=== PATIENT | female | born 2000 | race Caucasian/White ===

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

== ENCOUNTER 2019-05-24 13:41 | Emergency (ER) | payer BC, SELFPAY ==
[2019-05-24 13:42] VITALS: BP 162/92; PULSE 80; RESP 16; TEMP 36.6; O2SAT 100; BMI 26.1
--- NOTE | 2019-05-24 14:09 | CT_ITS ---
STUDY: CT ABDOMEN AND PELVIS WITH CONTRAST REASON FOR EXAM: Female, 19 years old. Right lower quadrant pain. RADIATION DOSAGE (If Supplied By Facility): CTDIvol = ( 10.65 ) mGy, DLP = ( 742.45 ) mGycm TECHNIQUE: Transaxial images were obtained from the dome of the diaphragm to the symphysis pubis with oral contrast. 100 ml of Isovue 370 contrast was administered. Sagittal and coronal images were reconstructed. Individualized dose optimization techniques were used for this CT. COMPARISON: None. FINDINGS: The visualized lung bases are clear. The visualized portions of the heart and pericardium are within normal limits. There are no calcified gallstones present. The liver is within normal limits. There are no suspicious hepatic lesions. The spleen is normal in size. The pancreas is within normal limits. The adrenal glands are within normal limits. There are no renal or ureteral stones. There is no hydronephrosis. There are no focal renal lesions. Normal visualized stomach. There is no bowel obstruction or inflammation. The appendix is visualized and appears normal. The aorta is normal in caliber. There is a right adnexal cyst. There is a small amount of pelvic free fluid. There is no free air, fluid collection or lymphadenopathy. There are no destructive osseous lesions. CT/Abdomen/Pelvis WITH Contrast IMPRESSION: Right adnexal cyst with a small amount of pelvic free fluid. This is likely physiologic. No bowel obstruction or inflammation. Normal appendix. Normal kidneys. No hydronephrosis. Electronically Signed: Mason Arnav, at 16:30 EDT Tel , Service support ,
[2019-05-24 14:29] LABS: Absolute Lymphocyte Count 1.68 X10^3/uL (0.83-4.51); Absolute Neutrophil Count 4.5 X10^3/uL (2.0-7.7); Basophil# 0.02 X10^3/uL; Basophil% 0.3 % (0-1); Eosinophil# 0.04 X10^3/uL; Eosinophils% 0.6 % (0-5); Hematocrit 40.7 % (37-47); Hemoglobin 12.7 g/dL (12.0-15.0); Lymphocyte # 1.68 X10^3/ul (4.0); Lymphocyte % 24.7 % (19-41); Mean Corp Hgb Conc 31.2 g/dL (32-36); Mean Corpuscular Hgb 24.9 pg (27.0-32.0); Mean Corpuscular Volume 79.6 fL (81-99); Mean Platelet Vol. 9.1 fl (6.2-12.0); Monocyte# 0.59 X10^3/uL; Monocyte% 8.7 % (0-10); NRBC Flagged by Analyzer 0 % (0-5); Neutrophil # 4.45 X10^3/uL (2.7-7.7); Neutrophil % 65.4 % (47-70); Platelet Count 314 K/mm3 (150-450); RBC Distribution Width CV 14.6 % (11.6-14.6); RBC Distribution Width SD 42.5 fl (35.1-43.9); Red Blood Count 5.11 M/mm3 (4.2-5.4); White Blood Count 6.8 K/mm3 (4.4-11.0)
[2019-05-24] MEDS: 0.9% Normal Saline 1,000 ML 1000 ML IV (14:29)
[2019-05-24 14:36] LABS: Internal QC Validated? YES +Cl - CLEAR BKGD; Pregnancy, Serum, hCG Quali. NEGATIVE Negative
[2019-05-24 14:44] LABS: AST(SGOT) 42 U/L (15-37); Alanine Aminotransfer ALT/SGPT 50 U/L (13-56); Albumin, Serum 4.1 g/dL (3.2-5.0); Alkaline Phosphatase 64 U/L (45-117); Anion Gap 8 (5-15); BUN 8 mg/dL (7-18); Calcium,Total 8.9 mg/dL (8.5-10.1); Chloride 105 mmol/L (98-107); Creatinine, Serum 0.62 mg/dL (0.55-1.02); EST Glomerular Filtration Rate 131 mL/min (>60); Est Glom Filt Rate - Afr Amer 159 mL/min (>60); Estimated Creatinine Clearance 156.52 ml/min; Globulin 4.1 g/dL (2.2-4.2); Glucose 84 mg/dL (74-106); Lipase 84 U/L (73-393); Potassium 3.3 mmol/L (3.5-5.1); Protein, Total 8.2 g/dL (6.4-8.2); Sodium Level 138 mmol/L (136-145)
[2019-05-24 14:55] LABS: Mucous, Urine 0 SEEN /hpf (<or=2+); Red Blood Cells-Urine 0 SEEN /hpf (0-5)
[2019-05-24 14:57] LABS: Color, Urine Yellow (Yellow); Glucose, Dipstick Normal (Normal); Ketone-Dipstick Negative (Negative); Leukocyte Esterase-Dipstick 25 /ul (Negative); Nitrite-Dipstick Negative (Negative); Occult Blood-Urine Negative /ul (Negative); Protein-Dipstick Negative (Negative); Urine Bilirubin Dipstick Negative (Negative); Urine Clarity Sl. Cloudy (Clear); Urine Urobilinogen Normal (Normal); Urine pH 6.5 (5.0 - 8.0)
[2019-05-24 15:08] LABS: Bacteria 1+ /hpf (None Seen); Squamous Epithelial Cells - UA 0-5 SEEN /hpf (5-10); White Blood Cells 0-5 SEEN /hpf (0-5)
--- NOTE | 2019-05-24 16:41 | ED.DCSUM_ITS ---
- ER Visit Summary Date of Service: 05/24/19 Chief Complaint: Abdominal pain History of Present Illness: The patient is a 19 F who presents with abdominal pain that has been getting worse over the past 3 days. Patient describes the pain as cramping. Patient states the pain is over the right side of her ab domen. Patient admits to nausea and decreased appetite. Patient also admits to some diarrhea. Patient denies any melena or hematochezia. Patient denies any dysuria or hematuria. Patient admits to subjective fevers and chills. Physical Examination: Vital signs are stable. Patient is afebrile. Patient is in no acute distress. Oral mucosa is pink and moist. Neck is supple. Trachea is midline. There is no JVD noted. Heart was regular rate and rhythm. Lungs are clear and equal bilaterally. Abdomen is soft. Bowel sounds are normal. There is right upper and right lower quadrant tenderness. There is no rebound or guarding noted. There is no Rovsing sign. Cranial nerves II through XII are intact. There are no focal motor or sensory deficits noted. Test Results: CBC and comprehensive metabolic profile were essentially within normal limits. Serum hCG was negative. Lipase was normal. Urinalysis does not show any evidence of urinary tract infection. CT scan of the abdomen and pelvis was obtained. There is a right adnexal cyst with a small amount of free fluid. The appendix is normal. There is no evidence of bowel obstruction or inflammation. Emergency Department Course and Treatment: Patient was advised of her lab results and CT findings. Patient was instructed to take Tylenol or ibuprofen as needed for pain. Patient was instructed to follow-up with her primary care physician in 5 to 7 days. Patient understood and was agreeable with the plan. All questions were answered. Disposition: Discharge home Impression: Abdominal pain This note was generated with [employer] dictation software. It may contain incorrect words, spelling, and punctuation that were not noted in review of the chart prior to signing ED Disposition - Plan for ED Patient: Disposition: Home or Assisted Living Diagnosis: Right lower quadrant abdominal pain, Right ovarian cyst Instructions: Ovarian Cyst Referrals: Mickey Vidal MD [Primary Care Provider] - 5-7 Days
[2019-05-24 17:44] VITALS: BP 141/51; PULSE 62; RESP 14; O2SAT 98
== END 2019-05-24 17:46 | disposition home or self-care (01) ==
PROVIDERS: Emergency Provider Emergency Medicine; Family Provider Family Medicine; PCP Family Medicine
DX: N83.201 Unspecified ovarian cyst, right side (principal); R10.31 Right lower quadrant pain; R19.7 Diarrhea, unspecified; R11.0 Nausea
CPT/HCPCS: 74177; 80053; 81001; 83690; 84703; 85025; 96360; 99283; J7030; Q9967; A4216

== ENCOUNTER 2020-12-09 23:10 | Emergency (ER) | payer BC, SELFPAY ==
[2020-12-09 23:11] VITALS: BP 147/82; PULSE 97; RESP 16; TEMP 35.8; O2SAT 100; BMI 27.2
--- NOTE | 2020-12-09 23:22 | EX.ED.DYSGE1 ---
HPI History of Present Illness Chief Complaint: Rash Informant: patient Narrative Narrative: 20-year-old female was burning brush this weekend and woke yesterday morning with rash on face abdominal region hands and feet. She states it reminds her of poison kelli. She is tried some [id number] treatments with no relief. She is not a diabetic. She is not immunocompromised. [facility] Medical History (Updated 12/09/20 @ 23:27 by Jim Odonnell) Anxiety Depression Substance abuse no medical history Home Medications prednisone 10 mg PO DAILY #48 tablet 12/09/20 [Rx Last Taken Unknown] sertraline [Zoloft] 150 mg PO DAILY 12/09/20 [History Last Taken Unknown] Allergy/AdvReac Type Severity Reaction Status Date / Time No Known Allergies Allergy Verified 12/09/20 23:11 no surgical history (Noncontributory) Social History (Updated 12/09/20 @ 23:[address] Isaiah Forbes, DO) Smoking Status: Never smoker substance use type: does not use ROS ROS ED Constitutional Constitutional ED: Denies chills or weight loss Eyes Eyes: Denies change in vision or diplopia ENT ENT ED: Denies ear pain, rhinorrhea or sore throat Cardiovascular Cardiovascular: Denies chest pain, orthopnea, palpitations or racing heartbeat Respiratory/Chest Respiratory/Chest: Denies cough, dyspnea or orthopnea Gastrointestinal Gastrointestinal: Denies abdominal pain, diarrhea, nausea or vomiting Genitourinary Genitourinary ED: Denies dysuria, hematuria or urinary frequency Musculoskeletal Musculoskeletal: Denies arthralgias or myalgias Integumentary Reports rash; Denies abscess Neurologic Neurologic: Denies headache(s) or weakness Psychiatric Psychiatric: Denies anxiety, depression, suicidal ideation or suicidal thoughts Endocrine Endocrinology: Denies polydipsia, polyphagia or polyuria Allergic/Immunologic Allergic/Immunologic ED: Denies mouth swelling, tongue swelling or urticaria EXAM Physical Exam Const Vital Signs: 12/09/20 23:11 Temperature 96.5 F L Temperature Source Temporal Pulse Rate 97 Respiratory Rate 16 Blood Pressure 147/82 H Blood Pressure Mean 103 Pulse Ox 100 Oxygen Delivery Method Room Air Positive well nourished and well developed General Appearance ED: well developed HEENT Reports normocephalic, head/scalp atraumatic and moist mucous membranes Eyes PERRL and EOMs intact bilaterally Neck no lymphadenopathy, supple and no JVD Resp normal respiratory effort and clear to auscultation bilaterally Cardio regular rate, regular rhythm and no murmurs GI normal to inspection, nondistended, normoactive bowel sounds and non-tender Palpation: soft Back/Spine no CVA tenderness and normal ROM Extremity normal to inspection General Extremety ED: Negative for edema General Extremity: Negative for edema Neuro oriented x3 and CN's II-XII intact bilaterally Sensorium / Orientation: alert Motor Exam: strength 5/5 throughout Psych mental status grossly normal Mood & Affect: Negative for depressed or tearful Skin no wounds Skin Narrative: Patient has a blistering weeping rash in the webspaces of both hands, face, left abdomen, and a few spots on her feet. These are consistent with rhus dermatitis MDM MDM MDM Narrative Medical decision making narrative: Patient will be started on tapering steroids. Continue OTC treatments. There is no evidence of secondary infection at this time. Return if worsening or concerns Discharge Plan Triage Chief Complaint: Rash ED Provider: Isaiah Forbes Dx/Rx/DC Orders Clinical Impression: Rhus dermatitis Instructions: ED Poison Kelli Rash Prescriptions: New prednisone 10 MG tablet 10 mg PO DAILY Qty: 48 RF: 0 No Action sertraline [Zoloft] 100 mg tablet 150 mg PO DAILY RF: 0 Primary Care Provider: Mickey Vidal Referrals: Mickey Vidal MD [Primary Care Provider] - As Needed Disposition Disposition: Home, self care
[2020-12-09] MEDS: Triamcinolone Acetonide 40 MG/ML Vial IM (23:30)
[2020-12-09 23:32] VITALS: PULSE 92; RESP 16; O2SAT 98
== END 2020-12-10 00:07 | disposition home or self-care (01) ==
LOC: ED 23:40
PROVIDERS: Emergency Provider Emergency Medicine; PCP Family Medicine
DX: L23.7 Allergic contact dermatitis due to plants, except food (principal); F41.9 Anxiety disorder, unspecified; F32.9 Major depressive disorder, single episode, unspecified
CPT/HCPCS: 96372; 99283

== ENCOUNTER 2021-07-30 13:00 | Outpatient (CLI) | payer BC, SELFPAY ==
[2021-07-30 13:09] VITALS: BMI 25.4
[2021-07-30 13:25] VITALS: BP 129/83; PULSE 76; RESP 16; TEMP 36.9
[2021-07-30] MEDS: Lactated Ringers 1,000 ML 999 ML IV (13:25)
[2021-07-30] MEDS: Ondansetron 4 MG/2 ML Vial IV (14:11)
[2021-07-30] MEDS: Lactated Ringers 1,000 ML 250 ML IV (14:30)
--- NOTE | 2021-07-30 15:43 | NURSING ---
Called Dr. Sanders to update on patient. States that if patient feels good and is able to keep po fluids down that she can be discharged. Order received for PO phenergan x1 12.5mg before d/c and ok to stop second fluid bag at 500cc infusion.
[2021-07-30] MEDS: proMETHazine 25 MG Tablet 12.5 MG PO (16:15)
--- NOTE | 2021-07-31 08:05 | OB.TRI.HP_ITS ---
HPI - General HPI Narrative VIRGINIE WALKER, is a 21 F who presents to labor and delivery at approximately 7 to 8 weeks gestation with hyperemesis gravidarum. Patient has not kept any liquids down for approximately 3 days. Today was her first visit in the office and she was sent to labor and delivery for some fluids. [facility] Medical History (Updated 07/31/21 @ 08:[address] Genaro Sanders MD) Anxiety Depression Substance abuse Home Medications sertraline [Zoloft] 150 mg PO DAILY 12/09/20 [History Last Taken Unknown] [id number] [] 1 tab PO DAILY 07/30/21 [History Last Taken Unknown] Allergy/AdvReac Type Severity Reaction Status Date / Time No Known Allergies Allergy Verified 07/30/21 13:10 Social History (Updated 12/09/20 @ 23:[address] Isaiah Forbes, DO) Smoking Status: Never smoker substance use type: does not use Assessment & Plan (1) Hyperemesis gravidarum: PLAN: Patient is approximately 7 weeks gestation with hyperemesis gravidarum. Responded well to IV fluids and IV Zofran and oral Phenergan. Patient has been unable to sleep recently so she was sent home with a prescription for Phenergan. Plan to see patient in approximately 1 week for ultrasound and weight monitoring.
[2021-08-02 20:07] LABS: Chlamydia By Nucleic Acid AMP Negative (Negative)
[2021-08-03 07:27] LABS: Gonococcus By Nucleic Acid AMP Negative (Negative)
[2021-08-05 17:18] LABS: HPV Reflexed? NOT INDICATED
== END 2021-07-30 23:59 | disposition home or self-care (01) ==
LOC: WPOUT 13:07 → WP 13:08
PROVIDERS: PCP Family Medicine; Visit Provider Obstetrics & Gynecology
DX: O21.0 Mild hyperemesis gravidarum (principal); O99.341 Other mental disorders complicating pregnancy, first trimester; F32.A Depression, unspecified; F41.9 Anxiety disorder, unspecified; Z3A.01 Less than 8 weeks gestation of pregnancy
CPT/HCPCS: 96374; 96361 ×3; 87491; 87591; 88175; 99218; J7120; G0145; G0378; J2405

== ENCOUNTER 2021-08-04 14:02 | Outpatient (CLI) | payer BC, SELFPAY ==
[2021-08-04 14:52] LABS: Absolute Lymphocyte Count 2.56 X10^3/uL (0.83-4.51); Absolute Neutrophil Count 8.2 X10^3/uL (2.0-7.7); Basophil# 0.04 X10^3/uL; Basophil% 0.3 % (0-1); Eosinophil# 0.03 X10^3/uL; Eosinophils% 0.3 % (0-5); Hematocrit 40.4 % (37-47); Lymphocyte # 2.56 X10^3/ul (0.83-4.51); Mean Corp Hgb Conc 32.2 g/dL (32-36); Mean Corpuscular Hgb 25.1 pg (27.0-32.0); Mean Platelet Vol. 9.3 fl (6.2-12.0); Monocyte# 0.81 X10^3/uL; Monocyte% 6.9 % (0-10); NRBC Flagged by Analyzer 0 % (0-5); Neutrophil # 8.17 X10^3/uL (2.7-7.7); Neutrophil % 70.1 % (47-70); Platelet Count 413 K/mm3 (150-450); RBC Distribution Width CV 14.5 % (11.6-14.6); RBC Distribution Width SD 40.9 fl (35.1-43.9); Red Blood Count 5.18 M/mm3 (4.2-5.4); White Blood Count 11.7 K/mm3 (4.4-11.0)
[2021-08-04 14:54] LABS: Color, Urine Yellow (Yellow); Glucose, Dipstick Normal (Normal); Leukocyte Esterase-Dipstick 100 /ul (Negative); Nitrite-Dipstick Positive (Negative); Occult Blood-Urine Negative /ul (Negative); Protein-Dipstick 15 mg/dl (Negative); Urine Bilirubin Dipstick Negative (Negative); Urine Clarity Clear (Clear); Urine Urobilinogen 1 mg/dl (Normal); Urine pH 6.5 (5.0 - 8.0)
[2021-08-04 14:57] LABS: Ketone-Dipstick 150 mg/dl (Negative)
[2021-08-04 15:19] LABS: Amphetamine Urine VISTA NEGATIVE (<1000 ng/mL); Barbiturate Urine VISTA NEGATIVE (< 200 ng/mL); Benzodiazepine Urine VISTA NEGATIVE (< 200 ng/mL); Cocaine Urine VISTA NEGATIVE (< 300 ng/mL); Ecstacy Urine VISTA NEGATIVE (< 500 ng/mL); Methadone Urine VISTA NEGATIVE (< 300 ng/mL); PCP Urine VISTA NEGATIVE (< 25 ng/mL); THC Urine VISTA POSITIVE (< 50 ng/mL); Vista UDS pH Range 6
[2021-08-04 15:28] LABS: Thyroid Stim Hormone (TSH) 0.31 uIU/mL (0.358-3.74)
[2021-08-04 16:26] LABS: HIV - WCH Non-Reactive (Nonreactive); Hepatitis B Surface Antigen Non-Reactive (Nonreactive); Hepatitis C Antibody Non-Reactive (Nonreactive); Rubella IgG Reactive (Nonreactive); Syphilis Antibodies Non-reactive
== END 2021-08-04 23:59 | disposition short-term general hospital (02) ==
LOC: WOBLAB 14:03
PROVIDERS: PCP Family Medicine; Visit Provider Obstetrics & Gynecology
DX: Z34.82 Encounter for supervision of other normal pregnancy, second trimester (principal)
CPT/HCPCS: 36415; 80307; 81002; 84443; 85025; 86703; 86762; 86780; 86803; 87086; 87088; 87186; 87340

== ENCOUNTER 2021-09-30 13:25 | Emergency (ER) | payer BC, SELFPAY ==
[2021-09-30 13:25] VITALS: BP 144/91; PULSE 821; RESP 16; TEMP 36.4; O2SAT 98; BMI 23.3
--- NOTE | 2021-09-30 14:20 | ED.VIS.GI ---
HPI HPI - GI History of Present Illness Chief Complaint: Nausea/Vomiting Informant: patient Nausea/Vomiting/Emesis GI Symptom: Positive for Nausea and Vomiting Onset: Days Severity: Moderate Diarrhea/Melena/Hematochezia GI Symptom: Negative for Diarrhea, Melena and Hematochezia Associated Symptoms Associated Symptoms: Negative for Dysuria, Frequency, Hematuria and Urgency Narrative Narrative: 21-year-old female no seen past medical or surgical history. Currently she is around [address] Genaro Arcos of [facility]. Patient states she had nausea and vomiting throughout the . She is on both home Phenergan and Zofran as not controlling her nausea. She denies any fever. No diarrhea. No abdominal pain. No vaginal bleeding. No dysuria or hematuria. She used to smoke marijuana prior to her for anxiety but said she has not been using it at all. Prior similar symptoms: Yes Recent Illness/Hospitalization: No PFSH PFSH Medical History Anxiety Depression Substance abuse Home Medications sertraline [Zoloft] 150 mg PO DAILY 12/09/20 [History Last Taken Unknown] [id number] [] 1 tab PO DAILY 07/30/21 [History Last Taken Unknown] Allergy/AdvReac Type Severity Reaction Status Date / Time No Known Allergies Allergy Verified 07/30/21 13:10 Social History Smoking Status: Never smoker substance use type: does not use ROS ROS ED ROS Narrative Nausea and vomiting. Review of Systems ROS Unobtainable: Denies due to encephalopathy Constitutional Constitutional ED: Denies fever(s) ENT ENT ED: Denies ear pain Cardiovascular Cardiovascular: Denies chest pain Respiratory/Chest Respiratory/Chest: Denies cough or dyspnea Gastrointestinal Gastrointestinal: Reports nausea and vomiting; Denies abdominal pain, constipation, diarrhea or melena Genitourinary Genitourinary ED: Denies dysuria or hematuria Musculoskeletal Musculoskeletal: Denies myalgias Integumentary Denies rash Neurologic Neurologic: Denies headache(s) Psychiatric Psychiatric: Denies depression Endocrine Endocrinology: Denies polyuria Hematologic/Lymphatic Hematologic/Lymphatic: Denies easy bruising Allergic/Immunologic Allergic/Immunologic ED: Denies urticaria EXAM Physical Exam Narrative Exam Narrative: 21-year-old female no acute distress vital signs stable afebrile does not look septic or toxic. Pulse ox 90% on room air no signs of hypoxia. HEENT exam unremarkable. Moist refinements. Neck nontender no JVD. Lungs clear to auscultation bilaterally. Heart tachycardic rate 121 no murmur. Abdomen soft nontender normal bowel sounds no peritoneal signs. No distention. Right upper and right lower quadrants are unremarkable. Moving all 4 extremities. Calves are nontender without edema or cords. Back nontender. Neurologically she is awake and alert. Const Vital Signs: 09/30/21 13:25 Temperature 97.6 F L Temperature Source Temporal Pulse Rate 821 H Respiratory Rate 16 Blood Pressure 144/91 H Blood Pressure Mean 108 Pulse Ox 98 Oxygen Delivery Method Room Air Positive well nourished and well developed; Negative for obese, cachectic, contractures or unkempt General Appearance ED: well developed and NAD; Negative for unkempt, cachectic, contractures or pallor Nutritional Appearance: Negative for cachectic or obese HEENT Reports moist mucous membranes normocephalic and atraumatic Eyes PERRL and EOMs intact bilaterally General Eye ED: Negative for pale conjunctiva or scleral icterus Neck no lymphadenopathy, supple and no JVD General: Negative for tenderness Resp normal respiratory effort and clear to auscultation bilaterally Auscultation: Negative for rales, rhonchi or wheezes Cardio regular rhythm, S1 normal heart sound, S2 normal heart sound and no murmurs; Negative for regular rate Rate: tachycardic GI non-tender, non-distended and no masses Inspection: Negative for abdominal distention Auscultation: normoactive bowel sounds Palpation: soft; Negative for tender, guarding, rigid or rebound tenderness present Back/Spine no CVA tenderness General Back: Negative for CVA tenderness Cervical Spine: Negative for cervical spine tenderness Thoracic Spine / Upper Back: Negative for thoracic spinal tenderness Extremity full ROM General Extremety ED: Negative for edema or tenderness General Extremity: Negative for edema Neuro CN's II-XII intact bilaterally and moves all extremities Sensorium / Orientation: alert, oriented to person, oriented to place and oriented to time; Negative for orientation impaired, confused, lethargic or stuporous Motor Exam: strength 5/5 throughout Psych mental status grossly normal and thought process normal Appearance: Negative for unkempt Skin no wounds General Skin Exam: Negative for jaundice or pallor Lesions: no lesions Rashes: no rashes MDM MDM MDM Narrative Medical decision making narrative: 21-year-old female no acute distress. Nausea vomiting . She is tachycardic. She will be given IV fluids and IV Zofran and reassessed. Her abdomen is completely nontender. I do not think she needs any lab work at this time. She is having no urinary symptoms. Repeat exam the patient is doing well at 3:30 PM. Nausea is resolved. She is going to drink water now she will do down she will be discharged home. She has antinausea medications at home. Abdomen is benign and nontender. Discharge Plan Triage Chief Complaint: Nausea/Vomiting ED Provider: Cody Bergman Dx/Rx/DC Orders Clinical Impression: Hyperemesis gravidarum Instructions: ED Hyperemesis Gravidarum Prescriptions: No Action sertraline [Zoloft] 100 mg tablet 150 mg PO DAILY RF: 0 1 mg Tablet 1 tab PO DAILY RF: 0 Primary Care Provider: Mickey Vidal Referrals: Mickey Vidal MD [Primary Care Provider] - Genaro Sanders MD [STAFF PHYSICIAN] - As soon as possible Activity Restrictions/Additional Instructions: Plenty of fluids and rest. Zofran as needed for nausea Follow-up with your [employer] [facility] [facility]. Disposition Disposition: Home, Self Care
[2021-09-30] MEDS: Ondansetron 4 MG/2 ML Vial IV (14:36)
[2021-09-30] MEDS: 0.9% Normal Saline 1,000 ML 1000 ML IV (14:36)
== END 2021-09-30 15:39 | disposition home or self-care (01) ==
LOC: ED 14:34
PROVIDERS: Emergency Provider Emergency Medicine; PCP Family Medicine; Visit Provider Emergency Medicine
DX: O21.0 Mild hyperemesis gravidarum (principal); R19.7 Diarrhea, unspecified; Z87.891 Personal history of nicotine dependence; Z3A.16 16 weeks gestation of pregnancy; F41.9 Anxiety disorder, unspecified; O99.342 Other mental disorders complicating pregnancy, second trimester; O99.612 Diseases of the digestive system complicating pregnancy, second trimester; K92.1 Melena; O99.891 Other specified diseases and conditions complicating pregnancy
CPT/HCPCS: 99283; J7030; A4216; J2405

== ENCOUNTER 2021-12-29 12:15 | Outpatient (CLI) | payer BC, SELFPAY ==
[2021-12-29 12:28] VITALS: BP 130/90; PULSE 83; PULSE 86; PULSE 93; TEMP 36.3; O2SAT 97; O2SAT 98
[2021-12-29 12:33] VITALS: BMI 25.1
[2021-12-29] MEDS: Lactated Ringers 1,000 ML 999 ML IV (12:35)
--- NOTE | 2021-12-29 12:47 | PCM.HP.BLA ---
History and Physical Date of Admission: 12/29/21 HPI: 21-year-old at 29/1 weeks, PRASHNATH 03/15/2022, presenting with nausea and vomiting. Patient had history of hyperemesis early in , which resolved and was taking antiemetics regularly. Patient woke up acutely Wednesday morning with emesis. States she has not eaten much since that time. Reports decreased urine output. Denies fevers or chills, reports a couple episodes of diarrhea. No one else around her is ill. No headache, vision changes, chest pain or shortness of breath, no right upper quadrant pain. Patient states that she feels hungry and has a slightly sore throat from vomiting. complications: Hyperemesis. Medical history: Denies Surgical history: Denies Family history noncontributory Social history: Denies tobacco, alcohol, drug use Allergies: No known drug allergies Review of system: Negative otherwise stated above Physical exam: Blood pressure 130/90, pulse 86, temp 97.4 ?F, oxygen saturation 97% on room air General: No acute distress HEENT: Normocephalic/atraumatic Cardiorespiratory: No increased effort Abdomen: Soft, nontender, gravid Extremities: No edema heart rate:145/mod go/+accel/no decel [place]: quiet Assessment/plan:21-year-old at 29/1 weeks, PRASHANTH 03/15/2022, presenting with nausea and vomiting. Patient has history of hyperemesis early in , which resolved patient was feeling much better. Differential diagnoses viral gastroenteritis versus hyperemesis. Will give IV fluid bolus, followed by D5 half NS +20 KCl. Zofran gives patient headache, therefore will give rectal Phenergan. P.o. challenge. If persistently nauseous will add blood work at that time.
[2021-12-29] MEDS: proMETHazine 25 MG Suppos. RC (12:51)
[2021-12-29 15:41] VITALS: BP 130/77; PULSE 61
== END 2021-12-29 16:48 | disposition home or self-care (01) ==
LOC: WPOUT 12:21 → WP 12:23
PROVIDERS: PCP Family Medicine; Visit Provider Student in an Organized Health Care Education/Training Program
DX: O21.2 Late vomiting of pregnancy (principal); Z3A.29 29 weeks gestation of pregnancy
CPT/HCPCS: 96365; 96366 ×2; 96361; 59050; 99218; J7120; G0378

== ENCOUNTER → 2022-01-01 | Outpatient (CLI) | payer BC, MEDICAID, SELFPAY ==
[2022-01-01 11:58] LABS: Hematocrit 32.6 % (37-47); Hemoglobin 10.3 g/dL (12.0-15.0); Mean Corp Hgb Conc 31.6 g/dL (32-36); Mean Corpuscular Hgb 26.1 pg (27.0-32.0); Mean Corpuscular Volume 82.5 fL (81-99); Mean Platelet Vol. 9.5 fl (6.2-12.0); Platelet Count 365 K/mm3 (150-450); RBC Distribution Width CV 13.8 % (11.6-14.6); RBC Distribution Width SD 41.6 fl (35.1-43.9); Red Blood Count 3.95 M/mm3 (4.2-5.4); White Blood Count 8.8 K/mm3 (4.4-11.0)
[2022-01-01 12:05] LABS: Glucose Challenge Gest 1H 50g 106 mg/dL (70-140)
== END | disposition home or self-care (01) ==
PROVIDERS: PCP Family Medicine; Visit Provider Obstetrics & Gynecology
DX: Z34.83 Encounter for supervision of other normal pregnancy, third trimester (principal)
CPT/HCPCS: 36415; 82950; 85027

== ENCOUNTER 2022-02-05 16:40 | Outpatient (CLI) | payer BC, MEDICAID, SELFPAY ==
[2022-02-05] VITALS (8 sets, daily range): BP systolic 132; BP diastolic 85; PULSE 83–151; O2SAT 97–99; BMI 25.0
[2022-02-05] MEDS: Lactated Ringers 1,000 ML 999 ML IV ×2 (17:25→18:32)
[2022-02-05] MEDS: proMETHazine 12.5 MG Suppos. RC (18:00)
[2022-02-05] MEDS: Mag Hydrox/Al Hydrox/Simeth 30 ML UDC PO (19:50)
--- NOTE | 2022-02-05 22:57 | OB.TRI.NOTE ---
HPI - General HPI Narrative VIRGINIE WALKER, is a 21 F who presents with dehydration and nausea PFSH PFSH Medical History Anxiety Depression Substance abuse Home Medications sertraline 100 mg tablet (Zoloft) 150 mg PO DAILY Check with primary doctor 12/09/20 [History Last Taken 02/05/22] [id number]-vbl-Hh-FA 1 mg tablet 1 tab PO DAILY Check with primary doctor 07/30/21 [History Last Taken 2 Days Ago ~02/03/22] promethazine 12.5 mg rectal suppository 12.5 mg NM BID PRN nausea 02/05/22 [History Last Taken 02/05/22 10:00] Allergy/AdvReac Type Severity Reaction Status Date / Time No Known Allergies Allergy Verified 07/30/21 13:10 Social History Smoking Status: Never smoker substance use type: does not use NST FHR Rate Baby A Baseline: 130 Variability:: Moderate Accelerations:: 15 x 15 Decelerations:: None NST Reactive:: Yes Uterine Activity:: quiet Assessment & Plan (1) : PLAN: Pt with dehydration and nausea symptoms now resolved after IVF. D/c home
== END 2022-02-05 19:55 | disposition home or self-care (01) ==
LOC: WPOUT 16:47 → WP 16:48
PROVIDERS: PCP Family Medicine; Visit Provider Obstetrics & Gynecology
DX: O26.893 Other specified pregnancy related conditions, third trimester (principal); E86.0 Dehydration; R11.0 Nausea; O99.344 Other mental disorders complicating childbirth; F32.A Depression, unspecified; F41.9 Anxiety disorder, unspecified; Z3A.00 Weeks of gestation of pregnancy not specified
CPT/HCPCS: 96360; 96361; 59025; 59050; 99218; J7120; G0378

== ENCOUNTER → 2022-02-19 | Outpatient (CLI) | payer BC, MEDICAID, SELFPAY | END | disposition home or self-care (01) | LOC: WOBLAB 15:46 | PROVIDERS: PCP Family Medicine; Visit Provider Student in an Organized Health Care Education/Training Program | DX: Z36.85 Encounter for antenatal screening for Streptococcus B (principal) | CPT/HCPCS: 87081 ==

== ENCOUNTER 2022-02-25 12:55 | Outpatient (CLI) | payer BC, MEDICAID, SELFPAY ==
--- NOTE | 2022-02-26 20:17 | OB.TRI.NOTE ---
HPI - General HPI Narrative VIRGINIE WALKER, is a 21 F who presents for NST PFS PFS Medical History Anxiety Depression Substance abuse Home Medications sertraline 100 mg tablet (Zoloft) 150 mg PO DAILY Check with primary doctor 12/09/20 [History Last Taken 02/05/22] [id number] 1 mg tablet 1 tab PO DAILY Check with primary doctor 07/30/21 [History Last Taken 2 Days Ago ~02/03/22] promethazine 12.5 mg rectal suppository 12.5 mg AK BID PRN nausea 02/05/22 [History Last Taken 02/05/22 10:00] Allergy/AdvReac Type Severity Reaction Status Date / Time No Known Allergies Allergy Verified 07/30/21 13:10 Social History Smoking Status: Never smoker substance use type: does not use NST FHR Rate Baby A Baseline: 130 Variability:: Moderate Accelerations:: 15 x 15 Decelerations:: None NST Reactive:: Yes Uterine Activity:: quiet Assessment & Plan (1) : PLAN: Pt arrives for NST, reactive. Okay to discharge home and follow-up at scheduled appointments
== END 2022-02-25 13:40 | disposition home or self-care (01) ==
LOC: WPOUT 13:01 → WP 13:01
PROVIDERS: PCP Family Medicine; Referring Provider Obstetrics & Gynecology; Visit Provider Obstetrics & Gynecology
DX: O26.899 Other specified pregnancy related conditions, unspecified trimester (principal); Z3A.00 Weeks of gestation of pregnancy not specified; F41.9 Anxiety disorder, unspecified; F32.A Depression, unspecified; O99.344 Other mental disorders complicating childbirth
CPT/HCPCS: 59025

== ENCOUNTER 2022-03-12 04:20 | Inpatient (IN) | payer BC, MEDICAID, SELFPAY ==
[2022-03-12] VITALS (73 sets, daily range): BP systolic 66–172; BP diastolic 45–109; PULSE 67–184; RESP 16; TEMP 36.1–37.1; O2SAT 83–100; BMI 25.2
[2022-03-12] MEDS: Labetalol 100 MG Tablet PO (04:41)
[2022-03-12] MEDS: proCHLORPERazine 10 MG/2 ML Vial IV (04:48)
[2022-03-12] MEDS: Lactated Ringers 1,000 ML 50 ML IV (04:49)
[2022-03-12] MEDS: LACTATED RINGERS 500 ML 999 ML IV ×2 (04:49→07:00)
[2022-03-12 04:58] LABS: Absolute Lymphocyte Count 1.85 X10^3/uL (0.83-4.51); Absolute Neutrophil Count 8.1 X10^3/uL (2.0-7.7); Basophil# 0.02 X10^3/uL; Basophil% 0.2 % (0-1); Hematocrit 38.8 % (37-47); Hemoglobin 12.6 g/dL (12.0-15.0); Lymphocyte # 1.85 X10^3/ul (0.83-4.51); Lymphocyte % 17.4 % (19-41); Mean Corp Hgb Conc 32.5 g/dL (32-36); Mean Corpuscular Hgb 24.5 pg (27.0-32.0); Mean Corpuscular Volume 75.5 fL (81-99); Mean Platelet Vol. 10.8 fl (6.2-12.0); Monocyte# 0.63 X10^3/uL; Monocyte% 5.9 % (0-10); NRBC Flagged by Analyzer 0 % (0-5); Neutrophil # 8.07 X10^3/uL (2.7-7.7); Neutrophil % 75.9 % (47-70); Platelet Count 299 K/mm3 (150-450); RBC Distribution Width CV 15.2 % (11.6-14.6); RBC Distribution Width SD 41.5 fl (35.1-43.9); Red Blood Count 5.14 M/mm3 (4.2-5.4); White Blood Count 10.6 K/mm3 (4.4-11.0)
[2022-03-12 05:11] LABS: Amphetamine Urine VISTA NEGATIVE (<1000 ng/mL); Barbiturate Urine VISTA NEGATIVE (< 200 ng/mL); Benzodiazepine Urine VISTA POSITIVE (< 200 ng/mL); Cocaine Urine VISTA NEGATIVE (< 300 ng/mL); Ecstacy Urine VISTA NEGATIVE (< 500 ng/mL); Methadone Urine VISTA NEGATIVE (< 300 ng/mL); PCP Urine VISTA NEGATIVE (< 25 ng/mL); THC Urine VISTA POSITIVE (< 50 ng/mL); Vista UDS pH Range 6
[2022-03-12 05:13] LABS: ALB/GLOB Ratio 0.7 RATIO (0.9-2.4); AST(SGOT) 18 U/L (15-37); Alanine Aminotransfer ALT/SGPT 15 U/L (13-56); Albumin, Serum 3.3 g/dL (3.2-5.0); Alkaline Phosphatase 128 U/L (45-117); Anion Gap 13 (5-15); BUN 9 mg/dL (7-18); BUN/Creat Ratio 12.4 RATIO (10-20); Calcium,Total 9.2 mg/dL (8.5-10.1); Chloride 101 mmol/L (98-107); Creatinine, Serum 0.73 mg/dL (0.55-1.02); EST Glomerular Filtration Rate 105 mL/min (>60); Est Glom Filt Rate - Afr Amer 128 mL/min (>60); Estimated Creatinine Clearance 130.72 ml/min; Globulin 4.6 g/dL (2.2-4.2); Glucose 112 mg/dL (74-106); LDH 169 U/L (84-246); Potassium 3.5 mmol/L (3.5-5.1); Protein, Total 7.9 g/dL (6.4-8.2); Sodium Level 134 mmol/L (136-145)
[2022-03-12] MEDS: fentaNYL-bupivacaine (epidural) 100 ML BAG EPIDURAL ×2 (06:15→11:14)
--- NOTE | 2022-03-12 06:50 | PCM.HP.BLA ---
History and Physical Date of Admission: 03/12/22 HPI: 21-year-old G1, P0 at 39/4 weeks, PRASHANTH 03/15/2022 by LMP, admitted for labor the setting of elevated blood pressure. Reports contractions. Denies leaking of fluid, vaginal bleeding. Reports movement. Denies headache, vision changes, chest pain or shortness of breath, nausea or vomiting, diarrhea or constipation, fevers or chills. 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 Depression Surgical history: Denies Medications: 1. Zoloft 150 mg qD 2. vitamin 3. Phenergan as needed Allergies: NKDA Family history: Noncontributory Social history: Denies tobacco, alcohol use. Urine tox positive for benzodiazepines and THC Review of system negative otherwise stated above Physical exam: Blood pressure 136/89, pulse 80, O2 sat 97% on room air General: No acute distress, uncomfortable HEENT: Normocephalic/atraumatic Cardiorespiratory: No increased effort Abdomen: Soft, nontender, gravid, no right upper quadrant pain Extremities: Minimal edema Neurologic: Cranial nerves II through XII grossly intact Musculoskeletal: Strength 5-5 throughout extremities Cervical exam: 2.5 cm per RN heart rate: 140/moderate variability/+accel/no decel [facility]: irregular Panel: GBS negative _ A/P: 21-year-old G1, P0 at 39/4 weeks, PRASHANTH 03/15/2022 by LMP, admitted for labor the setting of elevated blood pressure. Working diagnosis gestational hypertension. complicated by: Gestational hypertension, hyperemesis, depression, drug use ?Admit to labor and delivery ? Patient was given 100 mg labetalol orally x1. Patient has epidural and is comfortable. Blood pressure within normal limits. CBC, CMP within normal limits. At this time considering patient gestational hypertension ? Urine tox positive for benzodiazepines and THC. SSC post
[2022-03-12] MEDS: Oxytocin 30 units/NS 500 ml 30 UNITS/500 ML IV.SOLN IV (09:56)
[2022-03-12] MEDS: Lactated Ringers 1,000 ML 200 ML IV (10:41)
[2022-03-12] MEDS: Oxytocin 30 units/NS 500 ml 30 UNITS/500 ML IV.SOLN 334 UNITS IV (15:38)
--- NOTE | 2022-03-12 15:53 | EX.PCM.OBRPT ---
Vaginal Delivery Findings Description of Procedure: Normal spontaneous vaginal delivery of a viable male , vertex JADE. Head and shoulders delivered with ease. Cord cut and clamped. Baby handed off to patient. Placenta delivered via cord traction and fundal massage. First-degree midline perineal laceration, left labial laceration noted and repaired in typical fashion. EBL 250 cc Apgars 8/9
[2022-03-12] MEDS: Labetalol 200 MG Tablet PO (16:55)
[2022-03-13 00:55] VITALS: BP 145/99; PULSE 87; RESP 16; TEMP 36.6; O2SAT 98
[2022-03-13 04:33] VITALS: BP 140/94; PULSE 85; RESP 16; TEMP 36.1; O2SAT 98
[2022-03-13] MEDS: Labetalol 200 MG Tablet PO ×2 (04:38→17:39)
[2022-03-13 04:51] LABS: Hemoglobin 11.2 g/dL (12.0-15.0); Mean Corpuscular Hgb 24.6 pg (27.0-32.0); Mean Corpuscular Volume 76.9 fL (81-99); Mean Platelet Vol. 10.7 fl (6.2-12.0); Platelet Count 250 K/mm3 (150-450); RBC Distribution Width CV 15.5 % (11.6-14.6); RBC Distribution Width SD 41.8 fl (35.1-43.9); Red Blood Count 4.55 M/mm3 (4.2-5.4); White Blood Count 13.5 K/mm3 (4.4-11.0)
[2022-03-13 05:13] LABS: ALB/GLOB Ratio 0.7 RATIO (0.9-2.4); AST(SGOT) 28 U/L (15-37); Alanine Aminotransfer ALT/SGPT 16 U/L (13-56); Albumin, Serum 2.8 g/dL (3.2-5.0); Alkaline Phosphatase 98 U/L (45-117); Anion Gap 6 (5-15); BUN 5 mg/dL (7-18); BUN/Creat Ratio 8.8 RATIO (10-20); Calcium,Total 8.6 mg/dL (8.5-10.1); Chloride 105 mmol/L (98-107); Creatinine, Serum 0.57 mg/dL (0.55-1.02); EST Glomerular Filtration Rate 140 mL/min (>60); Est Glom Filt Rate - Afr Amer 170 mL/min (>60); Estimated Creatinine Clearance 167.41 ml/min; Globulin 3.8 g/dL (2.2-4.2); Glucose 93 mg/dL (74-106); Potassium 3.6 mmol/L (3.5-5.1); Protein, Total 6.6 g/dL (6.4-8.2); Sodium Level 138 mmol/L (136-145)
--- NOTE | 2022-03-13 07:31 | PCM.PN.OB ---
Subjective Subjective No overnight complaints. Denies headache, visual changes, chest pain, shortness of breath, nausea vomit, right upper quadrant pain. Objective Data Objective Data Vital Signs: Vital Signs Temp Pulse Resp BP Pulse Ox O2 Del Method 97 F L 85 16 140/94 H 98 Room Air 03/13/22 04:33 03/13/22 04:33 03/13/22 04:33 03/13/22 04:33 03/13/22 04:33 03/13/22 04:33 Oxygen Delivery Method Room Air Weight: 176 lb 2.389 oz Body Mass Index (BMI) 25.2 Intake & Output: Intake and Output for Last 24 Hours 03/11/22 03/12/22 03/13/22 23:59 23:59 23:59 Intake Total 2807.03 / 2807.03 Output Total 900 / 900 Balance 1907.03 / 1907.03 Lab / Micro Data Result Diagrams: 03/13/22 04:45 03/13/22 04:45 Labs: Laboratory Results - last 24 hr 03/13/22 04:45: WBC 13.5 H, RBC 4.55, Hgb 11.2 L, Hct 35.0 L, MCV 76.9 L, MCH 24.6 L, MCHC 32.0, RDW Std Deviation 41.8, RDW Coeff of Francisca 15.5 H, Plt Count 250, MPV 10.7 03/13/22 04:45: Sodium 138, Potassium 3.6, Chloride 105, Carbon Dioxide 27.0, Anion Gap 6, BUN 5 L, Creatinine 0.57, Estim Creat Clear Calc 167.41, Est GFR (MDRD) Af Amer 170, Est GFR (MDRD) Non-Af 140, BUN/Creatinine Ratio 8.8 L, Glucose 93, Calcium 8.6, Total Bilirubin 0.70, AST 28, ALT 16, Alkaline Phosphatase 98, Total Protein 6.6, Albumin 2.8 L, Globulin 3.8, Albumin/Globulin Ratio 0.7 L Micro: Microbiology 03/12/22 04:39 Nasal Secretion SARS-CoV-2 Antigen (Rapid) - Final Physical Exam Const alert, oriented x3, no apparent distress, average body habitus, healthy appearing and well nourished HEENT normocephalic and moist oral mucous membranes Eyes PERRL Neck full ROM Resp normal respiratory effort, no retractions, no use of accessory muscles and clear to auscultation bilaterally GI GI Narrative: Soft, nontender, uterus firm and below umbilicus Extremity normal to inspection, full ROM and no clubbing, cyanosis or edema Neuro moves all extremities and no focal motor deficits Psych mental status grossly normal, affect normal, speech normal and activity/motor behavior normal Assessment & Plan (1) : PLAN: day 1. Breast-feeding. Pain well controlled. Patient with elevated blood pressures after delivery, diagnosis of gestational hypertension. Started on labetalol 200 mg twice daily. Patient asymptomatic we will continue to monitor
[2022-03-13 07:49] VITALS: BP 135/105; PULSE 77; RESP 16; TEMP 36.3; O2SAT 98
[2022-03-13 12:53] VITALS: BP 142/100; PULSE 79; RESP 16; TEMP 36.3; O2SAT 99
--- NOTE | 2022-03-13 15:10 | CASEMGMT ---
Social Work Assessment Labor and Delivery Unit Patient Address:[address] [place] [address] Phone number: [phone] Date of Referral:03.12.2022 Time of Referral: 1914 Referred By: Dr. Cristino Hilario Date of Intervention: 03.13.2022 Time of Intervention: Approximately 1500 Reason for Referral: Maternal depression, anxiety, positive drug screen on admission. History obtained from: Medical records and mother of baby (MOB) Valerie Powers. Household composition: MOB and father of baby (FOB) Chon Chowdhury live with MOB's parents and 2 younger siblings (Morales-16; Donnie-14). Home situation is reported as safe and adequate. Patient's parent/guardian status: MOB is a 21 year old single female, involved with the FOB for the last 2 years. MOB denies any form of abuse, control, or intimidation in this relationship. First child for both, and is to be named Jamin Chowdhury (8..). Medical History: MOB is G1, P0 to 1 after delivering Jamin. care started at 8 weeks gestation and regular thereafter. Noted MOB with hyperemesis during and weight loss. Infant weighed 7 pounds 3 ounces at . Apgars 8 and 9 at 1 and 5 minutes of life. 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 No issues reported with reading, writing, or learning comprehension. 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 No reported concerns with finances. Supplies: MOB reports to have all necessary supplies including safe sleep space and car seat. MOB is breast feeding baby. Childcare/Caregiver(s): MOB and FOB with family helping with childcare when MOB returns to work. Transportation: No reported concerns or worries. Programs/Agencies Involved: Medicaid through [facility]. May apply for WIC. Declined [facility] referral. Children Services/Legal Issues: Denies past or present involvement. Behavioral Health Issues: Mental Health History: MOB reports history of depression and anxiety. On Zoloft 150 mg and plans to stay on this in the timeframe. Reports depression/anxiety worsened after MOB's ex-boyfriend completed suicide. MOB denies any history of suicidal ideation, intent, or attempts for self. Reports the boyfriends impacted MOB and MOB would not want to create distress for others. [place] depression screen a score of 7 this date, falling below the threshold for depression/anxiety. History of counseling in [place] but not currently. Substance Use History: MOB denies any alcohol use in . History of marijuana use, which MOB reportedly stopped when found out about . Associates current positive drug screens, possibly due to vaping Delta 8's. MOB denies any other drug use history, and denies use or abuse of prescription pills. MOB reports uncertainty as to where the benzodiazepines would have come from. Family History: MOB's mom has a history of depression and anxiety. No reported history of bipolar in the family. Drug Screens: Maternal drug screen positive on 08.04.2021 for marijuana and then for marijuana/benzodiazepines on 03.12.2022. Infant's urine drug screen positive for marijuana. Family/Social Stressors: No reported current or recent stressors. Support Systems: FOB, MOB's parents, and MOB's brothers. Depression/Shaken Baby/Safe Sleeping: Reviewed safe sleeping, shaken baby prevention, and mood and anxiety disorders, risk factors, and importance of self care/support should symptoms arise and/or become distressing. MOB expressed understanding. ASSESSMENT: Met with MOB in room, introducing to self and social work role. MOB pleasant, receptive, and willing to talk to psychiatric social worker supervisor. MOB held good eye contact, non-defensive, full affect. MOB reports to have all necessary supplies for baby, support from family, and no concerns about meeting basic needs in the community. MOB accepted education on mood and anxiety disorders, as well as packet of resources for home going. Provided packet for [facility] resources as well. MOB declines [facility] referral. Denies intent to use marijuana again. Educated to need to call children services related to infant's exposure in utero. MOB expressed understanding and acceptance of need for referral. Allowed MOB time for questions. Emotional supported offered. Safe Plan of Care for related to substance use: Abstinence from substances. No use of any substances while breast feeding. Should use happen in the future, no use around the child and have a sober person to take care of baby. PLAN: MOB and to home when ready. Resources for home going provided. Will call [facility] Children Services related to infant exposure to substances in utero. -MONIK Ho, TENA *This note was generated with [employer] software. It may contain incorrect words, spelling, and punctuation that were not noted in review of the chart prior to signing*
--- NOTE | 2022-03-13 16:30 | CASEMGMT ---
Social Work Labor and Delivery Called [facility] and spoke with Tessa in intake. Referral due for substance exposed infant in utero. Reported positive drug screens as well a brief maternal and infant histories. No other services requested or indicated, other than monitoring for meconium drug screen results. -MONIK Ho, DISTRICT MANAGER IN TRAINING
[2022-03-13 16:33] VITALS: BP 146/98; PULSE 81; RESP 16; TEMP 36.6
[2022-03-13 20:20] VITALS: BP 147/90; PULSE 77; RESP 16; TEMP 36.3; O2SAT 96
[2022-03-13] MEDS: Sertraline 100 MG Tablet 150 MG PO (20:23)
[2022-03-14 02:35] VITALS: BP 144/92; PULSE 75; RESP 16; TEMP 36.6; O2SAT 99
[2022-03-14] MEDS: Labetalol 200 MG Tablet PO ×2 (05:03→11:34)
[2022-03-14 07:38] VITALS: BP 129/96; PULSE 78; RESP 16; TEMP 36.4; O2SAT 98
--- NOTE | 2022-03-14 09:45 | PCM.DC.BLA ---
Discharge Summary Date of Admission: 03/12/22 Date of Discharge: 03/14/22 Summary: Patient arrived on 03/12/2022 in labor. Subsequently delivered vaginally on 03/12/2022. Diagnosed with gestational hypertension started on labetalol 200 mg twice daily. Discharged home on labetalol. Remained asymptomatic, labs within normal limits. Discharged home on 03/14/2022 Meaningful Use Info Meaningful Use Diagnoses (Choose all that apply): None applicable Discharge Plan Admission Admit Date/Time: 03/12/22 04:20 Primary Reason for Your Visit: Labor Attending Provider: Cristino Hilario Primary Care Provider: Mickey Vidal Instructions Additional Instructions / Restrictions: Regular diet. Weightbearing as tolerated. Okay to shower. No intercourse for 4 to 6 weeks. Call if chest pain, fevers, chills, headache, visual changes, right upper quadrant pain. Follow-up within 1 week for blood pressure check Discharge Orders/Prescriptions Prescriptions: New labetalol 200 mg Tablet 200 mg PO BID Qty: 30 1RF Continued sertraline [Zoloft] 100 mg tablet 150 mg PO DAILY [id number] 1 mg Tablet 1 tab PO DAILY Discontinued promethazine [Phenergan] 12.5 mg Suppository 12.5 mg RI BID PRN (Reason: nausea) Referrals / Follow Up: Mickey Vidal MD [Primary Care Provider] - Disposition Disposition (needs filled in before D/C Order can be placed): Home, Self Care
--- NOTE | 2022-03-14 09:46 | PCM.PN.OB ---
Subjective Subjective No overnight complaints. Denies headache, vision changes, chest pain, shortness of breath, right upper quadrant pain. Objective Data Objective Data Vital Signs: Vital Signs Temp Pulse Resp BP Pulse Ox O2 Del Method 97.6 F L 78 16 129/96 H 98 Room Air 03/14/22 07:38 03/14/22 07:38 03/14/22 07:38 03/14/22 07:38 03/14/22 07:38 03/14/22 07:38 Oxygen Delivery Method Room Air Weight: 176 lb 2.389 oz Body Mass Index (BMI) 25.2 Intake & Output: Intake and Output for Last 24 Hours 03/12/22 03/13/22 03/14/22 23:59 23:59 23:59 Intake Total 2807.03 / 2807.03 Output Total 900 / 900 Balance 1907.03 / 1907.03 Lab / Micro Data Result Diagrams: 03/13/22 04:45 03/13/22 04:45 Micro: Microbiology 03/12/22 04:39 Nasal Secretion SARS-CoV-2 Antigen (Rapid) - Final Physical Exam Const alert, oriented x3, no apparent distress, average body habitus, healthy appearing and well nourished HEENT normocephalic and moist oral mucous membranes Eyes PERRL Neck full ROM Resp normal respiratory effort, no retractions and no use of accessory muscles GI GI Narrative: Soft, nontender, uterus firm and below umbilicus Extremity normal to inspection, full ROM and no clubbing, cyanosis or edema Neuro moves all extremities and no focal motor deficits Psych mental status grossly normal, affect normal and speech normal Assessment & Plan (1) : PLAN: day 2. Breast-feeding. Gestational hypertension on labetalol 200 mg twice daily. Patient remains asymptomatic. Blood pressures nonsevere range. Okay to discharge home on labetalol 200 mg twice daily. To take at home blood pressures. Educated on signs and symptoms of preeclampsia. Okay to discharge home today
[2022-03-14 11:27] VITALS: BP 142/99
--- NOTE | 2022-03-26 14:22 | CASEMGMT ---
Social Work Labor and Delivery Meconium drug screen results are back and positive for marijuana. Greater than 498ng/gm noted on drug screen results. Spoke with Tessa in the intake department at [facility] ([facility]) [phone], [phone] of results. No other services requested or indicated. -MONIK Ho, CLOCK MECHANIC
== END 2022-03-14 11:50 | disposition home or self-care (01) | DRG 807 ==
LOC: WPOUT 04:22 → WP 04:22
PROVIDERS: Admitting Provider Obstetrics & Gynecology; PCP Family Medicine; Visit Provider Obstetrics & Gynecology
DX: O13.4 Gestational [pregnancy-induced] hypertension without significant proteinuria, complicating childbirth (principal); Z37.0 Single live birth; O99.344 Other mental disorders complicating childbirth; F32.A Depression, unspecified; O70.0 First degree perineal laceration during delivery; Z3A.39 39 weeks gestation of pregnancy
CPT/HCPCS: 59025; 59050; 80053; 80307; 83615; 85025; 85027; 86850; 86900; 86901; 87426; 99218; J7120; G0378

== ENCOUNTER 2023-06-12 18:44 | Emergency (ER) | payer BC, MEDICAID, SELFPAY ==
[2023-06-12 18:46] VITALS: BP 131/83; PULSE 97; RESP 22; TEMP 37.3; O2SAT 98; BMI 30.6
--- NOTE | 2023-06-12 19:23 | EDS_ITS ---
HPI <SYD Fox - Last Filed: 06/12/23 19:50> History of Present Illness Chief Complaint: Cold Sx Narrative Narrative: Patient presenting today with cold-like symptoms that she has had since Wednesday. She is also bringing in her son who has similar symptoms. She reports that she has had nasal congestion, drainage, sore throat, chest congestion, midsternal chest tightness, productive cough, sneezing, and shortness of breath on exertion. She denies any fever or chest pain. She denies PMH of any chronic health conditions. PFSH <SYD Fox - Last Filed: 06/12/23 19:50> PFSH Medical History Anxiety Depression Substance abuse Home Medications sertraline 100 mg tablet (Zoloft) 150 mg PO DAILY Check with primary doctor 12/09/20 [History Last Taken 03/11/22 12:00] ciqokoyy-rhc-Mu-FA 1 mg tablet 1 tab PO DAILY Check with primary doctor 07/30/21 [History Last Taken 02/19/22 09:00] labetalol 200 mg tablet 200 mg PO BID #30 tabs 03/14/22 [Rx Last Taken Unknown] Allergy/AdvReac Type Severity Reaction Status Date / Time No Known Allergies Allergy Verified 06/12/23 18:45 Social History Smoking Status: Never smoker substance use type: does not use ROS <SYD Fox - Last Filed: 06/12/23 19:50> ROS ED Constitutional Constitutional ED: Denies chills or fever(s) ENT ENT ED: Reports nasal congestion, rhinorrhea and sore throat Cardiovascular Cardiovascular: Denies chest pain or palpitations Respiratory/Chest Respiratory/Chest: Reports dyspnea on exertion; Denies cough, tachypnea or wheezing Gastrointestinal Gastrointestinal: Denies abdominal pain, nausea or vomiting Musculoskeletal Musculoskeletal: Denies arthralgias or myalgias Integumentary Denies rash Neurologic Neurologic: Denies weakness EXAM <SYD Fox - Last Filed: 06/12/23 19:50> Physical Exam Const Vital Signs: 06/12/23 18:46 06/12/23 18:53 Temperature 99.1 F Temperature Source Temporal Pulse Rate 97 Respiratory Rate 22 H Respiratory Effort Short of Breath Respiratory Pattern Normal Blood Pressure 131/83 H Blood Pressure Mean 99 Pulse Ox 98 Oxygen Delivery Method Room Air Positive well nourished and well developed General Appearance ED: well developed and NAD HEENT Reports TM's clear and moist mucous membranes HEENT Narrative: Posterior pharynx without erythema, no tonsillar exudate, uvula midline, no trismus, no drooling normocephalic and atraumatic Tympanic Membrane ED: Yes TM's clear bilateral Eyes PERRL and EOMs intact bilaterally Neck no lymphadenopathy, supple and no meningeal signs Resp normal respiratory effort and clear to auscultation bilaterally Cardio no murmurs Rate: regular rate Rhythm: regular rhythm GI non-tender, non-distended and no masses Palpation: soft Neuro oriented x3, CN's II-XII intact bilaterally and no sensory deficits noted Sensorium / Orientation: alert Motor Exam: strength 5/5 throughout Psych mental status grossly normal Skin Lesions: no lesions Rashes: no rashes <Dr. Cody Bergman MD - Last Filed: 06/12/23 19:47> Physical Exam Const Vital Signs: 06/12/23 18:46 06/12/23 18:53 Temperature 99.1 F Temperature Source Temporal Pulse Rate 97 Respiratory Rate 22 H Respiratory Effort Short of Breath Respiratory Pattern Normal Blood Pressure 131/83 H Blood Pressure Mean 99 Pulse Ox 98 Oxygen Delivery Method Room Air MDM <SYD Fox - Last Filed: 06/12/23 19:50> [facility] Narrative Medical decision making narrative: Patient presenting due to cold-like symptoms that she has had since Wednesday. She is here with her son who is sick with similar symptoms. She reports that she is more concerned about her son but thought she would be evaluated while here. Oxygen saturation 98% on room air, she is afebrile. She is well- appearing and in no acute distress. She did mention that she was having a lot of chest congestion and some shortness of breath on exertion, I did offer to obtain a chest x-ray but patient declines stating that she does not think she needs it at this time. I think that this is reasonable as my suspicion for pneumonia is low. Suspect that this is viral, she has been given supportive care measures, she will be discharged home in stable condition and is comfortable with plan I have personally performed a face to face assessment of the patient and have reviewed the SARAH Note. I performed a substantive portion of the visit including all aspects of the following. My marcus findings include: History is 23-year-old female no sent past medical history. URI symptoms for several days. Exam is [23-year-old female. Vital signs are stable and afebrile. Pulse ox 98% on room air no signs hypoxia. HEENT exam normal. Moist mucous membranes. Neck nontender no lymphadenopathy. Lungs clear to auscultation bilaterally. Heart regular rhythm no murmur rate about 90. Chest were nontender. Abdomen soft nontender. Moving all 4 extremities. Nontender no edema. Neurologic exam normal.] Medical Decision Making [3-year-old with URI symptoms appears to be viral. Does not need any labs nor imaging. She is comfortable with the plan.] Other additions or changes: [None] <Dr. Cody Bergman MD - Last Filed: 06/12/23 19:47> [facility] Narrative Medical decision making narrative: I have personally performed a face to face assessment of the patient and have reviewed the SARAH Note. I performed a substantive portion of the visit including all aspects of the following. My marcus findings include: History is 23-year-old female no sent past medical history. URI symptoms for several days. Exam is [23-year-old female. Vital signs are stable and afebrile. Pulse ox 98% on room air no signs hypoxia. HEENT exam normal. Moist mucous membranes. Neck nontender no lymphadenopathy. Lungs clear to auscultation bilaterally. Heart regular rhythm no murmur rate about 90. Chest were nontender. Abdomen soft nontender. Moving all 4 extremities. Nontender no edema. Neurologic exam normal.] Medical Decision Making [3-year-old with URI symptoms appears to be viral. Does not need any labs nor imaging. She is comfortable with the plan.] Other additions or changes: [None] Discharge Plan Triage Chief Complaint: Cold Sx ED Midlevel Provider: Shavonne Yun ED Provider: Cody Bergman Dx/Rx/DC Orders Clinical Impression: Viral URI Instructions: ED URI, Viral, No Abx (Adult) Prescriptions: No Action sertraline [Zoloft] 100 mg tablet 150 mg PO DAILY vzxvslkz-bzv-Yo-FA 1 mg Tablet 1 tab PO DAILY labetalol 200 mg Tablet 200 mg PO BID Qty: 30 1RF Primary Care Provider: Mickey Vidal Referrals: Mickey Vidal MD [Primary Care Provider] - 5-7 Days Activity Restrictions/Additional Instructions: Stay well-hydrated, you can take [id number]-[id number] cold and flu medications as needed, follow-up with your PCP. Return for any worsening of your symptoms Disposition Disposition: Home, Self Care
== END 2023-06-12 19:55 | disposition home or self-care (01) ==
PROVIDERS: Emergency Provider Emergency Medicine; PCP Family Medicine; Visit Provider Emergency Medicine
DX: J06.9 Acute upper respiratory infection, unspecified (principal); F32.A Depression, unspecified; Z79.899 Other long term (current) drug therapy
CPT/HCPCS: 99282